=== PATIENT | male | born 1945 | race African-American/Black ===

== ENCOUNTER → 2023-02-03 | Day surgery (SDC) | payer MEDICARE ==
[~2023-02-03] MED LIST: BRIMONIDINE TART5 ML OP; CARVEDILOL12.5 MG PO; CRESTOR10 MG PO; FENTANYL CITRATE/PF 100MCG/2 ML INJ ONE; HYZAAR 100-12.1 EACH PO; KENALOG TOP; LACTATED RINGER'S 1,000 ML ONE; LATANOPROST2.5 ML OP; LIDOCAINE HCL 2% LOCAL INJ 5 ML SDV VIAL INJ ONE; METFORMIN HCL500 MG PO; MIRALAX17 GM PO; PROPOFOL IV EMULSION 10 MG/ML 20 ML VIAL ONE
[2023-02-03 09:50] VITALS: BP 130/78
== END | disposition home or self-care (01) ==
LOC: OR 07:14
PROVIDERS: ATTEND Internal Medicine Gastroenterology
DX: R13.10 Dysphagia, unspecified (principal); K29.50 Unspecified chronic gastritis without bleeding; B96.81 Helicobacter pylori [H. pylori] as the cause of diseases classified elsewhere; K31.89 Other diseases of stomach and duodenum; K44.9 Diaphragmatic hernia without obstruction or gangrene; I10 Essential (primary) hypertension; E11.9 Type 2 diabetes mellitus without complications; Z01.810 Encounter for preprocedural cardiovascular examination; Z79.84 Long term (current) use of oral hypoglycemic drugs; Z79.899 Other long term (current) drug therapy
CPT/HCPCS: 36415; 43239; 82948; 88305; 88342; 93005; J2001; J2704; J3010; J7121; 88304; 88312